=== PATIENT | female | born 1965 | race Caucasian/White ===

== ENCOUNTER 2020-10-13 14:11 | Emergency (ER) | payer OTHER ==
[~2020-10-13] VITALS: Ht 152.4 cm; Wt 83.2 kg
[2020-10-13] MEDS ORDERED: IBUP-1114 PO (14:36)
--- NOTE | 2020-10-13 16:23 | REP ---
INDICATION: fall/pain. COMPARISON: None. TECHNIQUE: Five views including PA chest. FINDINGS: PA chest radiograph is normal. There is no evidence of pneumothorax or hydrothorax. Mediastinum is not widened. Lung torres are clear. Heart size is normal. Multiple views of the right rib cage demonstrate subtle cortical irregularity of the right lateral 6th rib which may be a nondisplaced fracture. no other rib lesion is seen. IMPRESSION: Subtle cortical irregularity of the right lateral 6th rib which may reflect a recent fracture. This should be correlated with area of patient tenderness and pain. No complication is seen. <Electronically signed by Adan Christian > 10/13/20 3841
[2020-10-13] MEDS ORDERED: LIDOCAINE 5% (LIDODERM) PATCH TD ONE (17:15)
[2020-10-13] MEDS ORDERED: HYDR-3713 PO (17:41)
[2020-10-13] MEDS ORDERED: LIDO5DIS41 TOP (17:41)
[2020-10-13 18:00] VITALS: BP 132/76
[2020-10-13] MEDS ORDERED: **NOTE PATIENT COMMENT** MISC XX SCH (21:00)
== END 2020-10-13 18:01 | disposition home or self-care (01) ==
LOC: M ED 14:11
DX: S22.31XA Fracture of one rib, right side, initial encounter for closed fracture (principal); S20.211A Contusion of right front wall of thorax, initial encounter; W19.XXXA Unspecified fall, initial encounter; Y92.89 Other specified places as the place of occurrence of the external cause; J45.909 Unspecified asthma, uncomplicated

== ENCOUNTER → 2022-06-29 | Outpatient (CLI) | payer OTHER ==
[~2022-06-29] MED LIST: HYDR-3713 PO; IBUP-1114 PO; LIDO5DIS41 TOP
== END ==
LOC: M WHC 09:41
PROVIDERS: ATTEND Nurse Practitioner Family
DX: N63.21 Unspecified lump in the left breast, upper outer quadrant (principal); Z12.39 Encounter for other screening for malignant neoplasm of breast

== ENCOUNTER → 2024-05-07 | Outpatient (CLI) | payer OTHER | LOC: M WHC 08:06 | PROVIDERS: ATTEND Physician Assistant | DX: Z12.31 Encounter for screening mammogram for malignant neoplasm of breast (principal) ==